=== PATIENT | female | born 1975 | race Caucasian/White ===

== ENCOUNTER 2018-03-30 22:39 | Emergency (ER) | payer MEDICAID ==
[~2018-03-30] VITALS: Ht 157.5 cm; Wt 67.6 kg
[2018-03-30 22:44] VITALS: BP 113/70
== END 2018-03-31 00:48 | disposition home or self-care (01) ==
LOC: ED 23:59
DX: S20.212A Contusion of left front wall of thorax, initial encounter (principal); F15.20 Other stimulant dependence, uncomplicated; F17.210 Nicotine dependence, cigarettes, uncomplicated; F20.9 Schizophrenia, unspecified; F31.9 Bipolar disorder, unspecified; F10.10 Alcohol abuse, uncomplicated; Y04.8XXA Assault by other bodily force, initial encounter; Y93.89 Activity, other specified; Y99.8 Other external cause status; Y92.410 Unspecified street and highway as the place of occurrence of the external cause
CPT/HCPCS: 93005; 99284

== ENCOUNTER 2019-01-01 01:35 | Emergency (ER) | payer MEDICAID ==
[~2019-01-01] VITALS: Ht 154.9 cm; Wt 66.8 kg
[2019-01-01 01:40] VITALS: BP 156/90
--- NOTE | 2019-01-01 01:49 | NUR ---
FIRST CONTACT WITH PT. PT HERE BECAUSE SHE IS HAVING DIFFICULTY HEARING. PT HAS HAD A COLD AND NOW HEARING IS MUFFLED. PT IS ALSO HAVING PAIN IN EARS. PT'S AOX4. RESPS EVEN AND UNLABORED.
--- NOTE | 2019-01-01 02:19 | NUR ---
PT GIVEN DC INSTRUCTIONS AND SCRIPT. PT EDUCATED REGARDING DC MEDICATION. PT'S AOX4. RESPS EVEN AND UNLABORED. PT AMB TO DC WITH STEADY GAIT. NO ACUTE DISTRESS AT DC.
== END 2019-01-01 02:20 | disposition home or self-care (01) ==
LOC: ED 02:05
DX: H66.002 Acute suppurative otitis media without spontaneous rupture of ear drum, left ear (principal); R05 Cough; R09.81 Nasal congestion
CPT/HCPCS: 99283